=== PATIENT | female | born 1960 | race Caucasian/White ===

== ENCOUNTER 2018-05-23 10:49 | Emergency (ER) | payer BC ==
[~2018-05-23] VITALS: Ht 167.6 cm; Wt 88.5 kg
[2018-05-23 10:54] VITALS: BP 142/68
--- NOTE | 2018-05-23 11:45 | RAD ---
Left ankle, 3 views, 05/23/2018: HISTORY: Fall, pain There is a transverse fracture of the lateral malleolus with only slight lateral displacement of the distal fracture fragment. An oblique lucency projected over the medial malleolus is compatible with a nondisplaced fracture. No ankle dislocation is evident. There is moderate soft tissue swelling, particularly over the lateral malleolus. IMPRESSION: Bimalleolar left ankle fractures. Electronically signed by: Dae Louie MD (05/23/2018 11:41 AM) [facility]
[2018-05-23] MEDS ORDERED: HYDR-971 PO (12:21)
--- NOTE | 2018-05-23 12:21 | PHYS DOC ---
Past Medical History Past Medical History: No Pertinent History Past Surgical History: No Surgical History Alcohol Use: None Drug Use: None Adult General Chief Complaint Chief Complaint: ANKLE PROBLEM HPI HPI Patient is a 58 year old 58-year-old female who presents with 6 out of 10 bilateral ankle pain that began this morning after she slipped and fell. Patient states she was walking down some steps when she slipped in the last 2 steps and fell, she states she rolled her left ankle. Patient denies any loss of consciousness, denies hitting her head on the ground. She states the pain is sharp worse on weight-bearing. She states she took tramadol for her pain with some relief. Review of Systems Review of Systems Constitutional: Denies fever or chills [] Musculoskeletal: Denies back pain or joint pain reports left ankle pain Integument: Denies rash or skin lesions [] Neurologic: Denies headache, focal weakness or sensory changes [] All other systems were reviewed and found to be within normal limits, except as documented in this note. Allergies Allergies Allergies Coded Allergies Type Severity Reaction Last Updated Verified No Known Drug Allergies 05/23/18 No Physical Exam Physical Exam Constitutional: Well developed, well nourished, no acute distress, non-toxic appearance. [] Skin: Warm, dry, no erythema, no rash. [] Back: No tenderness, no CVA tenderness. [] Extremities: Left ankle with no obvious deformity. Small amount of soft tissue swelling noted on the left lateral ankle. Tenderness on palpation of the left lateral ankle. Full passive range of motion to the left ankle. Patient able to flex and extend the foot. +2 left pedal pulse. Cap refill less than 2 seconds the left toes. Sensation intact to the left lower extremity. Neurologic: Alert and oriented X 3, normal motor function, normal sensory function, no focal deficits noted. [] Psychologic: Affect normal, judgement normal, mood normal. [] Current Patient Data Vital Signs Vital Signs Date Time Temp Pulse Resp B/P (MAP) Pulse Ox O2 Delivery O2 Flow Rate FiO2 05/23/18 10:54 98.4 80 16 142/68 (92) 97 Room Air 98.4 EKG EKG [] Radiology/Procedures Radiology/Procedures []PROCEDURE: ANKLE LEFT 3V Left ankle, 3 views, 05/23/2018: HISTORY: Fall, pain There is a transverse fracture of the lateral malleolus with only slight lateral displacement of the distal fracture fragment. An oblique lucency projected over the medial malleolus is compatible with a nondisplaced fracture. No ankle dislocation is evident. There is moderate soft tissue swelling, particularly over the lateral malleolus. IMPRESSION:( isPROCEDURE: ANKLE LEFT 3V Left ankle, 3 views, 05/23/2018: HISTORY: Fall, pain There is a transverse fracture of the lateral malleolus with only slight lateral displacement of the distal fracture fragment. An oblique lucency projected over the medial malleolus is compatible with a nondisplaced fracture. No ankle dislocation is evident. There is moderate soft tissue swelling, particularly over the lateral malleolus. IMPRESSION: Bimalleolar left ankle fractures. Electronically signed by: Dae Louie MD (05/23/2018 11:41 AM) [facility] DICTATED and SIGNED BY: DAE LOUIE MD DATE: 05/23/181138 Electronically signed by: Dae Louie MD (05/23/2018 11:41 AM) [facility] DICTATED and SIGNED BY: DAE LOUIE MD DATE: 05/23/181138 Course & Med Decision Making Course & Med Decision Making Pertinent Labs and Imaging studies reviewed. (See chart for details) This is a 58-year-old female patient presenting to the ED today with left ankle pain after slipping and falling down 2 steps, no loss of consciousness, left ankle x-rays interpreted by radiologist were noted for- Bimalleolar left ankle fractures. Patient was placed in a stirrup and posterior leg splint by the medical supply technician, neurovascular exam done by me is normal, ice elevation encouraged. Provided crutches in the ED. Provided orthopedic doctor to call today and set up a follow-up appointment as an outpatient. Dragon Disclaimer Dragon Disclaimer This electronic medical record was generated, in whole or in part, using a voice recognition dictation system. Departure Departure Impression: Primary Impression: Bimalleolar ankle fracture Additional Impression: Fall down steps Disposition: 01 HOME, SELF-CARE Condition: STABLE Referrals: SHEILA SELF MD Call his office today and set up a follow-up appointment Patient Instructions: Bimalleolar Fracture, Ankle, Adult, Undisplaced, Fall Prevention and Home Safety Additional Instructions: You were evaluated in the emergency room for left ankle pain. You have bimalleolar left ankle fractures. Please contact the provided orthopedic doctor today and set up a follow-up appointment in the clinic. Ice and elevate the extremity. Take the prescribed pain medicine as needed for pain. Scripts Hydrocodone/Apap 5-325 (NORCO 5-325 TABLET) 1 Each Tablet 1 TAB PO Q6HRS PRN for PAIN, #20 TAB Prov: RUDDY RODRIGUEZ APRN 05/23/18 Problem Qualifiers Primary Impression: Bimalleolar ankle fracture Encounter type: initial encounter Fracture type: closed Laterality: left Qualified Codes: S82.842A - Displaced bimalleolar fracture of left lower leg, initial encounter for closed fracture Additional Impression: Fall down steps Encounter type: initial encounter Qualified Codes: W10.8XXA - Fall (on) ( from) other stairs and steps, initial encounter RUDDY RODRIGUEZ APRN May 23, 2018 12:21
== END 2018-05-23 12:31 | disposition home or self-care (01) ==
LOC: ER 10:49
DX: S82.842A Displaced bimalleolar fracture of left lower leg, initial encounter for closed fracture (principal); W10.8XXA Fall (on) (from) other stairs and steps, initial encounter; Y93.01 Activity, walking, marching and hiking; Y92.89 Other specified places as the place of occurrence of the external cause; Y99.8 Other external cause status
CPT/HCPCS: 29515; 73610; 99284